=== PATIENT | female | born 1995 | race African-American/Black ===

== ENCOUNTER 2016-10-17 23:00 | Emergency (ER) | payer OTHER ==
[2016-10-18 01:20] LABS: CONTROL LINE HCG INT CTR LINE PRESENT
--- NOTE | 2016-10-18 02:22 | EDDOCDS ---
Physician Documentation [facility] Name: So Malone Age: 20 yrs Sex: Female : 1995 Arrival Date: 10/17/2016 Time: 23:00 Bed 7 Private MD: Momo ARDON Disposition: 10/18 01:57 Critical Care: Critical care not applicable. pc Disposition: 10/18/16 01:57 Discharged to Home/Self Care. Impression: Irregular menstruation, unspecified. - Condition is Stable. - Discharge Instructions: Abnormal Uterine Bleeding. - Medication Reconciliation, Local Pharmacy Hours form. - Follow up: Momo Vila [facility]; When: As needed; Reason: Continuance of care. - Problem is new. - Symptoms are unchanged. HPI: 00:38 This 20 yrs old Female presents to ER via Walkin/Carried/Asstd with pc complaints of Vag Bleeding,. 00:38 The history is obtained from the patient. She late for her menses by a week and started pc to have vaginal bleeding tonight. She believes she may be but has not done a home test. She is here "to check if I'm ". The patient has not experienced similar symptoms in the past. The patient has not recently seen a physician. Historical: - Allergies: no known allergies; - Home Meds: 1. Vitamin Oral tab 1 tab once daily - PMHx: none; - PSHx: ; - The history from nurses notes was reviewed: and I agree with what is documented. - Social history: Smoking status: Patient states was never smoker of tobacco. No barriers to communication noted, The patient speaks fluent Polish. - : The pt / caregiver states he / she is not on anticoagulants. Home medication list is obtained from the patient. - Hospitalizations: : No recent hospitalization is reported. - Exposure Risk Screening:: None identified. - Immunization history:: All immunizations up-to-date. - Family history: Not pertinent. - Social history:: the patient is a non-smoker, the patient does not drink alcohol. 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 pc Exam: 00:38 General Appearance: no acute distress, alert. pc 00:38 EENT: normal eye inspection, ears, nose and throat normal, pharynx normal, mucous membranes moist 00:38 Neck: The exam reveals no acute abnormalities. ROM is normal and painless. No nuchal rigidity is noted.. 00:38 Respiratory: no respiratory distress, normal breath sounds. 00:38 CVS: regular pulse rate, regular rhythm, normal S1 and S2, no murmurs, strong peripheral pulses. 00:38 Abdomen: soft, non-tender, no organomegaly, normal bowel sounds. 00:38 Skin: skin color is normal, warm, dry. 00:38 Extremities: no pedal edema. Vital Signs: 10/17 23:02 BP 142 / 71; Pulse 106; Resp 18 S; Temp 99.3(O); Pulse Ox 100% on R/A; Weight 68.04 kg gr2 / 150 lbs (R); Height 5 ft. 1 in. (154.94 cm) (R); Pain 3/10; 10/18 02:00 BP 117 / 73; Pulse 56; Resp 18; Temp 97.8(T); Pulse Ox 100% on R/A; Pain 0/10; chris 10/17 23:02 Body Mass Index 28.34 (68.04 kg, 154.94 cm) gr2 MDM: 10/17 23:52 UCG by Nursing ordered. pc 10/18 00:38 HCG,Serum Qualitative Ordered. EDMS 00:41 Differential Diagnosis: vaginal bleeding - menses v related. Plan: labs. pc 01:50 HCG,Serum Qualitative Reviewed. pc 01:57 Data reviewed: old medical records, vital signs, nurses notes, lab test results. Test pc interpretation: LAB - all labs as ordered have been reviewed, interpreted and considered in the overall management of the clinical presentation;. The patient has been re-examined and re-evaluated. The clinical presentation did not require any ED treatment or interventions. Disposition: The historical points, examination findings, and any diagnostic results supporting the provided diagnosis, were discussed with the patient or legal guardian. The need for outpatient follow up with the provider listed on their discharge instructions was discussed. They were encouraged to return to [facility], or the nearest ED, if symptoms worsen/persist, or for any other questions/concerns. Point of Care Testing: Urine : 00:36 hCG Reading: Negative; mgs 00:36 Exp: 07/2018; Lot #: [id number]; mgs Ranges: Signatures: Dispatcher [employer] Mehdi Park MD MD pc Smith, Mallory, RN RN ms18 Andrew Suarez RN RN mgs MTDD
--- NOTE | 2016-10-18 02:22 | EDDOCDS ---
Nurse's Notes [facility] Name: So Malone Age: 20 yrs Sex: Female : 1995 Arrival Date: 10/17/2016 Time: 23:00 Bed 7 Private MD: WVMomo AN Diagnosis: Irregular menstruation, unspecified Presentation: 10/17 23:03 Presenting complaint: Patient states: that she believes that she is approx 4 weeks ms18 and is having a miscarriage. Risk factors: The patient reports no loss of conciousness prior to arrival. This patient has not had a hysterectomy. This patient has not begun menopause. Adult Sepsis Screening: The patient does not have new or worsening altered mentation. Patient's respiratory rate is less than 22. Systolic blood pressure is greater than 100. Patient has a qSOFA score of 0- Negative Sepsis Screen. Suicide/Homicide risk assessment- the patient denies having any suicidal and/or homicidal ideations and does not present with any other emotional, behavioral or mental health complaints. 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 Transition of care: patient was not received from another setting of care. 23:03 Acuity: AMPARO Level 3 ms18 23:03 Method Of Arrival: Walkin/Carried/Asstd ms18 Triage Assessment: 23:05 General: Appears in no apparent distress, Behavior is appropriate for age, cooperative. ms18 Pain: Denies pain. HIV screening NA for this visit Offered previously. Neurological: Level of Consciousness is awake, alert, obeys commands, Oriented to person, place, time. Respiratory: No deficits noted. : Reports vaginal bleeding that is bright red with clots heavy flow. Derm: Skin is pink, warm & dry. 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 Vitamin Oral tab 1 tab once daily - PMHx: none; - PSHx: ; - The history from nurses notes was reviewed: and I agree with what is documented. - Social history: Smoking status: Patient states was never smoker of tobacco. No barriers to communication noted, The patient speaks fluent Uzbek. - : The pt / caregiver states he / she is not on anticoagulants. Home medication list is obtained from the patient. - Hospitalizations: : No recent hospitalization is reported. - Exposure Risk Screening:: None identified. - Immunization history:: All immunizations up-to-date. - Family history: Not pertinent. - Social history:: the patient is a non-smoker, the patient does not drink alcohol. Screenin/03 00:50 Screening information is obtained from the patient. Fall risk: No risks identified. mgs Assistance ADL's: requires no assistance with activities of daily living. Abuse/DV Screen: The patient / caregiver reports he/she is: not in a situation that causes fear, pain or injury. Nutritional screening: No deficits noted. Advance Directives: Currently, there is no health care proxy. There is no active DNR order. There is a living will, but a copy is not available at this time. home support is adequate. Assessment: 00:08 General: Appears in no apparent distress, Behavior is appropriate for age, cooperative. mgs Pain: Denies pain. Neurological: Level of Consciousness is awake, alert, Oriented to person, place, time. Cardiovascular: Capillary refill < 3 seconds Heart tones S1 S2 present Pulses are 2+ in right radial artery and left radial artery. Respiratory: Airway is patent Respiratory effort is even, unlabored, Respiratory pattern is regular, symmetrical, Breath sounds are clear bilaterally. Derm: Skin is intact, is healthy with good turgor. 00:50 Adult Sepsis Screening: The patient does not have new or worsening altered mentation. mgs Patient's respiratory rate is less than 22. Systolic blood pressure is greater than 100. Patient has a qSOFA score of 0- Negative Sepsis Screen. General: Appears in no apparent distress, Behavior is appropriate for age, cooperative. Pain: Denies pain. Neurological: Level of Consciousness is awake, alert, Oriented to person, place, time. Cardiovascular: Capillary refill < 3 seconds. Respiratory: Airway is patent Respiratory effort is even, unlabored, Respiratory pattern is regular, symmetrical. Derm: Skin is intact, is healthy with good turgor. 01:50 General: Appears in no apparent distress, Behavior is appropriate for age, cooperative. mgs Pain: Denies pain. Neurological: Level of Consciousness is awake, alert, Oriented to person, place, time. Cardiovascular: Capillary refill < 3 seconds. Respiratory: Airway is patent Respiratory effort is even, unlabored, Respiratory pattern is regular, symmetrical. Derm: Skin is intact, is healthy with good turgor. 02:19 Adult Sepsis Screening: The patient does not have new or worsening altered mentation. mgs Patient's respiratory rate is less than 22. Systolic blood pressure is greater than 100. Patient has a qSOFA score of 0- Negative Sepsis Screen. General: Appears in no apparent distress, Behavior is appropriate for age, cooperative. Pain: Denies pain. Neurological: Level of Consciousness is awake, alert, Oriented to person, place, time. Cardiovascular: Capillary refill < 3 seconds. Respiratory: Airway is patent Respiratory effort is even, unlabored, Respiratory pattern is regular, symmetrical. Derm: Skin is intact, is healthy with good turgor. Vital Signs: 10/17 23:02 BP 142 / 71; Pulse 106; Resp 18 S; Temp 99.3(O); Pulse Ox 100% on R/A; Weight 68.04 kg gr2 (R); Height 5 ft. 1 in. (154.94 cm) (R); Pain 3/10; 10/18 02:00 BP 117 / 73; Pulse 56; Resp 18; Temp 97.8(T); Pulse Ox 100% on R/A; Pain 0/10; chris 10/17 23:02 Body Mass Index 28.34 (68.04 kg, 154.94 cm) gr2 Vitals: 10/17 23:02 Log In Time: October 17, 2016 at 23:02. gr2 ED Course: 23:01 Patient visited by Mery Escobar. gr2 23:01 Patient moved to Waiting gr2 [facility]:02 [facility] gr2 23:03 Patient visited by Mery Escobar. gr2 23:03 Patient moved to Pre RCE gr2 23:05 Triage Initiated ms18 23:47 Patient moved to 7 cz 23:52 Mehdi Hicks MD is Attending Physician. pc 23:54 Patient visited by Mehdi Hicks MD. pc 23:56 Andrew Suarez,RN is Primary Nurse. mgs 10/18 00:09 Patient visited by Andrew Suarez,ROBIN. mgs 00:51 Patient visited by Andrew Suarez RN. mgs 01:52 Patient visited by Mehdi Hicks MD. pc 01:57 [facility] is Referral Physician. pc 02:00 Patient visited by Denice Harris PCA. chris 02:20 No IV's were initiated during this patient's visit. No procedures done that require mgs assistance. 02:21 The patient / caregiver is instructed regarding the plan of care and ED course. mgs Point of Care Testing: Urine : 00:36 hCG Reading: Negative; mgs 00:36 Exp: 07/2018; Lot #: [id number]; mgs Ranges: Order Results: Lab Order: HCG,Serum Qualitative; SPEC'M 10/18/16 00:55 Test: HCG, SERUM QUALITATIVE; Value: NEGATIVE; Range: NEGATIVE; Status: F Outcome: 01:57 Discharge ordered by Provider. pc 02:20 Discharge Assessment: Patient awake, alert and oriented x 3. No cognitive and/or mgs functional deficits noted. Patient verbalized understanding of disposition instructions. patient administered narcotics - no. The following High Risk Discharge criteria are identified: None. Discharged to home ambulatory, with friend. Condition: stable. Discharge instructions given to patient, Instructed on discharge instructions, follow up and referral plans. Demonstrated understanding of instructions, Pt was receptive of discharge instructions/ teaching. No special radiology studies were completed. Property sent home with patient. 02:21 Patient left the ED. mgs Signatures: Mehdi Hicks MD MD pc Zecher, Calvin, ROBIN KELLY Denice Harris PCA CARDIOLOGY COORDINATOR Mery Smith gr2 Melba Lee RN RN ms18 Andrew Suarez RN RN mgs MTDD
--- NOTE | 2016-10-20 03:22 | EDDOCDS ---
Nurse's Notes [facility] Name: So Malone Age: 20 yrs Sex: Female : 1995 Arrival Date: 10/17/2016 Time: 23:00 Bed 7 Private MD: GAMomo AN Diagnosis: Irregular menstruation, unspecified Presentation: 10/17 23:03 Presenting complaint: Patient states: that she believes that she is approx 4 weeks ms18 and is having a miscarriage. Risk factors: The patient reports no loss of conciousness prior to arrival. This patient has not had a hysterectomy. This patient has not begun menopause. Adult Sepsis Screening: The patient does not have new or worsening altered mentation. Patient's respiratory rate is less than 22. Systolic blood pressure is greater than 100. Patient has a qSOFA score of 0- Negative Sepsis Screen. Suicide/Homicide risk assessment- the patient denies having any suicidal and/or homicidal ideations and does not present with any other emotional, behavioral or mental health complaints. 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 Transition of care: patient was not received from another setting of care. 23:03 Acuity: AMPARO Level 3 ms18 23:03 Method Of Arrival: Walkin/Carried/Asstd ms18 Triage Assessment: 23:05 General: Appears in no apparent distress, Behavior is appropriate for age, cooperative. ms18 Pain: Denies pain. HIV screening NA for this visit Offered previously. Neurological: Level of Consciousness is awake, alert, obeys commands, Oriented to person, place, time. Respiratory: No deficits noted. : Reports vaginal bleeding that is bright red with clots heavy flow. Derm: Skin is pink, warm & dry. 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 Vitamin Oral tab 1 tab once daily - PMHx: none; - PSHx: ; - The history from nurses notes was reviewed: and I agree with what is documented. - Social history: Smoking status: Patient states was never smoker of tobacco. No barriers to communication noted, The patient speaks fluent Romanian. - : The pt / caregiver states he / she is not on anticoagulants. Home medication list is obtained from the patient. - Hospitalizations: : No recent hospitalization is reported. - Exposure Risk Screening:: None identified. - Immunization history:: All immunizations up-to-date. - Family history: Not pertinent. - Social history:: the patient is a non-smoker, the patient does not drink alcohol. Screenin/03 00:50 Screening information is obtained from the patient. Fall risk: No risks identified. mgs Assistance ADL's: requires no assistance with activities of daily living. Abuse/DV Screen: The patient / caregiver reports he/she is: not in a situation that causes fear, pain or injury. Nutritional screening: No deficits noted. Advance Directives: Currently, there is no health care proxy. There is no active DNR order. There is a living will, but a copy is not available at this time. home support is adequate. Assessment: 00:08 General: Appears in no apparent distress, Behavior is appropriate for age, cooperative. mgs Pain: Denies pain. Neurological: Level of Consciousness is awake, alert, Oriented to person, place, time. Cardiovascular: Capillary refill < 3 seconds Heart tones S1 S2 present Pulses are 2+ in right radial artery and left radial artery. Respiratory: Airway is patent Respiratory effort is even, unlabored, Respiratory pattern is regular, symmetrical, Breath sounds are clear bilaterally. Derm: Skin is intact, is healthy with good turgor. 00:50 Adult Sepsis Screening: The patient does not have new or worsening altered mentation. mgs Patient's respiratory rate is less than 22. Systolic blood pressure is greater than 100. Patient has a qSOFA score of 0- Negative Sepsis Screen. General: Appears in no apparent distress, Behavior is appropriate for age, cooperative. Pain: Denies pain. Neurological: Level of Consciousness is awake, alert, Oriented to person, place, time. Cardiovascular: Capillary refill < 3 seconds. Respiratory: Airway is patent Respiratory effort is even, unlabored, Respiratory pattern is regular, symmetrical. Derm: Skin is intact, is healthy with good turgor. 01:50 General: Appears in no apparent distress, Behavior is appropriate for age, cooperative. mgs Pain: Denies pain. Neurological: Level of Consciousness is awake, alert, Oriented to person, place, time. Cardiovascular: Capillary refill < 3 seconds. Respiratory: Airway is patent Respiratory effort is even, unlabored, Respiratory pattern is regular, symmetrical. Derm: Skin is intact, is healthy with good turgor. 02:19 Adult Sepsis Screening: The patient does not have new or worsening altered mentation. mgs Patient's respiratory rate is less than 22. Systolic blood pressure is greater than 100. Patient has a qSOFA score of 0- Negative Sepsis Screen. General: Appears in no apparent distress, Behavior is appropriate for age, cooperative. Pain: Denies pain. Neurological: Level of Consciousness is awake, alert, Oriented to person, place, time. Cardiovascular: Capillary refill < 3 seconds. Respiratory: Airway is patent Respiratory effort is even, unlabored, Respiratory pattern is regular, symmetrical. Derm: Skin is intact, is healthy with good turgor. Vital Signs: 10/17 23:02 BP 142 / 71; Pulse 106; Resp 18 S; Temp 99.3(O); Pulse Ox 100% on R/A; Weight 68.04 kg gr2 (R); Height 5 ft. 1 in. (154.94 cm) (R); Pain 3/10; 10/18 02:00 BP 117 / 73; Pulse 56; Resp 18; Temp 97.8(T); Pulse Ox 100% on R/A; Pain 0/10; chris 10/17 23:02 Body Mass Index 28.34 (68.04 kg, 154.94 cm) gr2 Vitals: 10/17 23:02 Log In Time: October 17, 2016 at 23:02. gr2 ED Course: 23:01 Patient visited by Mery Escobar. gr2 23:01 Patient moved to Waiting gr2 23:02 [facility] gr2 23:03 Patient visited by Mery Escobar. gr2 23:03 Patient moved to Pre RCE gr2 23:05 Triage Initiated ms18 23:47 Patient moved to 7 cz 23:52 Mehdi Hicks MD is Attending Physician. pc 23:54 Patient visited by Mehdi Hicks MD. pc 23:56 Andrew Suarez,RN is Primary Nurse. mgs 10/18 00:09 Patient visited by Andrew Suarez,ROBIN. mgs 00:51 Patient visited by Andrew Suarez RN. mgs 01:52 Patient visited by Mehdi Hicks MD. pc 01:57 [facility] is Referral Physician. pc 02:00 Patient visited by Denice Harris PCA. chris 02:20 No IV's were initiated during this patient's visit. No procedures done that require mgs assistance. 02:21 The patient / caregiver is instructed regarding the plan of care and ED course. mgs 02:55 [facility] Payment Agreement was scanned into [employer] and attached to record. hs2 Point of Care Testing: Urine : 00:36 hCG Reading: Negative; mgs 00:36 Exp: 07/2018; Lot #: [id number]; mgs Ranges: Order Results: Lab Order: HCG,Serum Qualitative; SPEC'M 10/18/16 00:55 Test: HCG, SERUM QUALITATIVE; Value: NEGATIVE; Range: NEGATIVE; Status: F Outcome: 01:57 Discharge ordered by Provider. pc 02:20 Discharge Assessment: Patient awake, alert and oriented x 3. No cognitive and/or mgs functional deficits noted. Patient verbalized understanding of disposition instructions. patient administered narcotics - no. The following High Risk Discharge criteria are identified: None. Discharged to home ambulatory, with friend. Condition: stable. Discharge instructions given to patient, Instructed on discharge instructions, follow up and referral plans. Demonstrated understanding of instructions, Pt was receptive of discharge instructions/ teaching. No special radiology studies were completed. Property sent home with patient. 02:21 Patient left the ED. mgs Signatures: Mehdi Hicks MD MD pc Zecher, Calvin, ROBIN KELLY cz Denice Harris PCA PLANNING CONSULTANT chris Mery Escobar gr2 Melba Lee RN RN ms18 Andrew Suarez RN RN mgs Radha Voss, Reg Reg hs2 Chart Complete MTDD
--- NOTE | 2016-10-20 03:22 | EDDOCDS ---
Physician Documentation [facility] Name: So Malone Age: 20 yrs Sex: Female : 1995 Arrival Date: 10/17/2016 Time: 23:00 Bed 7 Private MD: Momo ARDON Disposition: 10/18 01:57 Critical Care: Critical care not applicable. pc Disposition: 10/18/16 01:57 Discharged to Home/Self Care. Impression: Irregular menstruation, unspecified. - Condition is Stable. - Discharge Instructions: Abnormal Uterine Bleeding. - Medication Reconciliation, Local Pharmacy Hours form. - Follow up: Momo Vila [facility]; When: As needed; Reason: Continuance of care. - Problem is new. - Symptoms are unchanged. HPI: 00:38 This 20 yrs old Female presents to ER via Walkin/Carried/Asstd with pc complaints of Vag Bleeding,. 00:38 The history is obtained from the patient. She late for her menses by a week and started pc to have vaginal bleeding tonight. She believes she may be but has not done a home test. She is here "to check if I'm ". The patient has not experienced similar symptoms in the past. The patient has not recently seen a physician. Historical: - Allergies: no known allergies; - Home Meds: 1. Vitamin Oral tab 1 tab once daily - PMHx: none; - PSHx: ; - The history from nurses notes was reviewed: and I agree with what is documented. - Social history: Smoking status: Patient states was never smoker of tobacco. No barriers to communication noted, The patient speaks fluent Hong Konger. - : The pt / caregiver states he / she is not on anticoagulants. Home medication list is obtained from the patient. - Hospitalizations: : No recent hospitalization is reported. - Exposure Risk Screening:: None identified. - Immunization history:: All immunizations up-to-date. - Family history: Not pertinent. - Social history:: the patient is a non-smoker, the patient does not drink alcohol. 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 pc Exam: 00:38 General Appearance: no acute distress, alert. pc 00:38 EENT: normal eye inspection, ears, nose and throat normal, pharynx normal, mucous membranes moist 00:38 Neck: The exam reveals no acute abnormalities. ROM is normal and painless. No nuchal rigidity is noted.. 00:38 Respiratory: no respiratory distress, normal breath sounds. 00:38 CVS: regular pulse rate, regular rhythm, normal S1 and S2, no murmurs, strong peripheral pulses. 00:38 Abdomen: soft, non-tender, no organomegaly, normal bowel sounds. 00:38 Skin: skin color is normal, warm, dry. 00:38 Extremities: no pedal edema. Vital Signs: 10/17 23:02 BP 142 / 71; Pulse 106; Resp 18 S; Temp 99.3(O); Pulse Ox 100% on R/A; Weight 68.04 kg gr2 / 150 lbs (R); Height 5 ft. 1 in. (154.94 cm) (R); Pain 3/10; 10/18 02:00 BP 117 / 73; Pulse 56; Resp 18; Temp 97.8(T); Pulse Ox 100% on R/A; Pain 0/10; chris 10/17 23:02 Body Mass Index 28.34 (68.04 kg, 154.94 cm) gr2 MDM: 10/17 23:52 UCG by Nursing ordered. pc 10/18 00:38 HCG,Serum Qualitative Ordered. EDMS 00:41 Differential Diagnosis: vaginal bleeding - menses v related. Plan: labs. pc 01:50 HCG,Serum Qualitative Reviewed. pc 01:57 Data reviewed: old medical records, vital signs, nurses notes, lab test results. Test pc interpretation: LAB - all labs as ordered have been reviewed, interpreted and considered in the overall management of the clinical presentation;. The patient has been re-examined and re-evaluated. The clinical presentation did not require any ED treatment or interventions. Disposition: The historical points, examination findings, and any diagnostic results supporting the provided diagnosis, were discussed with the patient or legal guardian. The need for outpatient follow up with the provider listed on their discharge instructions was discussed. They were encouraged to return to [facility], or the nearest ED, if symptoms worsen/persist, or for any other questions/concerns. 02:22 Financial registration complete. hs2 02:55 [facility] Payment Agreement was scanned into [employer] and attached to record. hs2 Point of Care Testing: Urine : 00:36 hCG Reading: Negative; mgs 00:36 Exp: 07/2018; Lot #: [id number]; mgs Ranges: Signatures: Dispatcher [employer] EDMehdi Garner MD MD pc Smith, Mallory, RN RN [id number] Andrew Suarez RN RN mgs Radha Voss, Reg Reg hs2 The chart was reviewed and I authenticate all verbal orders and agree with the evaluation and treatment provided.Attachments: 02:55 [facility] Payment Agreement hs2 Chart Complete MTDD
--- NOTE | 2016-10-20 03:22 | EDDOCDS ---
Physician Documentation [facility] Name: So Malone Age: 20 yrs Sex: Female : 1995 Arrival Date: 10/17/2016 Time: 23:00 Bed 7 Private MD: Momo ARDON Disposition: 10/18 01:57 Critical Care: Critical care not applicable. pc Disposition: 10/18/16 01:57 Discharged to Home/Self Care. Impression: Irregular menstruation, unspecified. - Condition is Stable. - Discharge Instructions: Abnormal Uterine Bleeding. - Medication Reconciliation, Local Pharmacy Hours form. - Follow up: Momo Vila [facility]; When: As needed; Reason: Continuance of care. - Problem is new. - Symptoms are unchanged. HPI: 00:38 This 20 yrs old Female presents to ER via Walkin/Carried/Asstd with pc complaints of Vag Bleeding,. 00:38 The history is obtained from the patient. She late for her menses by a week and started pc to have vaginal bleeding tonight. She believes she may be but has not done a home test. She is here "to check if I'm ". The patient has not experienced similar symptoms in the past. The patient has not recently seen a physician. Historical: - Allergies: no known allergies; - Home Meds: 1. Vitamin Oral tab 1 tab once daily - PMHx: none; - PSHx: ; - The history from nurses notes was reviewed: and I agree with what is documented. - Social history: Smoking status: Patient states was never smoker of tobacco. No barriers to communication noted, The patient speaks fluent Cymro. - : The pt / caregiver states he / she is not on anticoagulants. Home medication list is obtained from the patient. - Hospitalizations: : No recent hospitalization is reported. - Exposure Risk Screening:: None identified. - Immunization history:: All immunizations up-to-date. - Family history: Not pertinent. - Social history:: the patient is a non-smoker, the patient does not drink alcohol. REHANGER: 10/17 23:05 3, Full Term 1, Premature 0, 1, Living 1, LMP 09/19/2016 ms18 ROS: 10/18 00:38 All systems are negative except as listed. pc Exam: 00:38 General Appearance: no acute distress, alert. pc 00:38 EENT: normal eye inspection, ears, nose and throat normal, pharynx normal, mucous membranes moist 00:38 Neck: The exam reveals no acute abnormalities. ROM is normal and painless. No nuchal rigidity is noted.. 00:38 Respiratory: no respiratory distress, normal breath sounds. 00:38 CVS: regular pulse rate, regular rhythm, normal S1 and S2, no murmurs, strong peripheral pulses. 00:38 Abdomen: soft, non-tender, no organomegaly, normal bowel sounds. 00:38 Skin: skin color is normal, warm, dry. 00:38 Extremities: no pedal edema. Vital Signs: 10/17 23:02 BP 142 / 71; Pulse 106; Resp 18 S; Temp 99.3(O); Pulse Ox 100% on R/A; Weight 68.04 kg gr2 / 150 lbs (R); Height 5 ft. 1 in. (154.94 cm) (R); Pain 3/10; 10/18 02:00 BP 117 / 73; Pulse 56; Resp 18; Temp 97.8(T); Pulse Ox 100% on R/A; Pain 0/10; chris 10/17 23:02 Body Mass Index 28.34 (68.04 kg, 154.94 cm) gr2 MDM: 10/17 23:52 UCG by Nursing ordered. pc 10/18 00:38 HCG,Serum Qualitative Ordered. EDMS 00:41 Differential Diagnosis: vaginal bleeding - menses v related. Plan: labs. pc 01:50 HCG,Serum Qualitative Reviewed. pc 01:57 Data reviewed: old medical records, vital signs, nurses notes, lab test results. Test pc interpretation: LAB - all labs as ordered have been reviewed, interpreted and considered in the overall management of the clinical presentation;. The patient has been re-examined and re-evaluated. The clinical presentation did not require any ED treatment or interventions. Disposition: The historical points, examination findings, and any diagnostic results supporting the provided diagnosis, were discussed with the patient or legal guardian. The need for outpatient follow up with the provider listed on their discharge instructions was discussed. They were encouraged to return to [facility], or the nearest ED, if symptoms worsen/persist, or for any other questions/concerns. 02:22 Financial registration complete. hs2 02:55 [facility] Payment Agreement was scanned into [employer] and attached to record. hs2 Point of Care Testing: Urine : 00:36 hCG Reading: Negative; mgs 00:36 Exp: 07/2018; Lot #: [id number]; mgs Ranges: Signatures: Dispatcher [employer] EDMehdi Garner MD MD pc Smith, Mallory, RN RN [id number] Andrew Suarez RN RN mgs Radha Voss, Reg Reg hs2 The chart was reviewed and I authenticate all verbal orders and agree with the evaluation and treatment provided.Attachments: 02:55 [facility] Payment Agreement hs2 Chart Complete MTDD
== END 2016-10-18 02:21 | disposition home or self-care (01) ==
LOC: M ED 23:00
DX: N92.6 Irregular menstruation, unspecified (principal); Z79.899 Other long term (current) drug therapy

== ENCOUNTER 2017-08-02 15:15 | Inpatient (IN) | payer OTHER ==
[~2017-08-02] VITALS: Ht 154.9 cm; Wt 65.0 kg
[2017-08-02] MEDS ORDERED: ZOLO25TA PO (15:42)
[2017-08-02 17:15] LABS: MEAN CORPUSCULAR HEMOGLOBIN 30.9 pg (27.0-33.0); MEAN CORPUSCULAR HGB CONC 32.7 g/dl (32.0-36.5); MEAN CORPUSCULAR VOLUME 94.5 fl (80.0-96.0); RED CELL DISTRIBUTION WIDTH 13.1 % (11.5-14.5); WHITE BLOOD COUNT 5.9 10^3/uL (4.0-10.0)
[2017-08-02 17:23] LABS: CONTROL LINE HCG INT CTR LINE PRESENT
[2017-08-02 17:35] LABS: METHADONE URINE NEGATIVE (NEGATIVE)
[2017-08-02 17:49] LABS: ALBUMIN 4.1 GM/DL (3.2-5.2); ALBUMIN/GLOBULIN RATIO 1.14 (1.00-1.93); ALKALINE PHOSPHATASE 44 U/L (45-117); ALT/SGPT 13 U/L (12-78); ANION GAP 6 MEQ/L (8-16); AST/SGOT 9 U/L (15-37); BILIRUBIN,DIRECT < 0.1 MG/DL (0.0-0.2); BILIRUBIN,TOTAL 0.2 MG/DL (0.2-1.0); BLOOD UREA NITROGEN 14 MG/DL (7-18); CALCIUM LEVEL 8.8 MG/DL (8.5-10.1); CARBON DIOXIDE LEVEL 26 MEQ/L (21-32); CHLORIDE LEVEL 108 MEQ/L (98-107); CREATININE FOR GFR 1.02 MG/DL (0.55-1.02); GLOMERULAR FILTRATION RATE > 60.0 (>60); GLUCOSE, FASTING 80 MG/DL (70-105); POTASSIUM SERUM 3.8 MEQ/L (3.5-5.1); SODIUM LEVEL 140 MEQ/L (136-145); TOTAL PROTEIN 7.7 GM/DL (6.4-8.2)
[2017-08-02] MEDS ORDERED: RIGHTAB2 PO (18:46)
[2017-08-02] MEDS ORDERED: ACET1TAB17 PO (18:46)
[2017-08-02 21:00] VITALS: BP 144/75
[2017-08-02] MEDS ORDERED: MAALOX 30 ML SUSP *UDC PO PRN (22:00)
[2017-08-02] MEDS ORDERED: traZODone 50 MG TAB PO PRN (22:00)
[2017-08-02] MEDS ORDERED: MOM 30ML SUSPENSION UDC PO PRN (22:00)
[2017-08-02] MEDS ORDERED: OXAZEPAM 15 MG CAP PO PRN (22:00)
[2017-08-03 06:00] VITALS: BP 110/59
[2017-08-03] MEDS ORDERED: SERTRALINE HCL 25 MG TABLET PO SCH (09:00)
[2017-08-03] MEDS: PRENATAL VITAMINS CHEWABLE TABLET PO SCH (09:14)
--- NOTE | 2017-08-03 09:19 | HPEPDOC ---
[facility] Medical History & Physical Date of Admission Aug 02, 2017 History and Physical PCP: [facility] ATTENDING: Dr. Ac Spencer HPI: 21yoF admitted to [facility] for unspecified depressive disorder, being medically examined today. No acute medical complaints today. Patient states she has history of headaches. They occur approximately twice per month. They resolve quickly with Tylenol. She also has history of chronic back pain. She denies any prior injury. She denies any radiation of pain down her legs. She denies weakness, numbness, or tingling in lower extremities. She denies bowel or bladder incontinence. She states pain is controlled with Tylenol as needed. She states she has been on vitamins since the of her child in 2010. Denies any fevers, chills, weakness, fatigue, [place], CP, SOB, cough, palpitations, abdominal pain, N/V/D or changes in bowel or bladder habits. 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 Illicit Drugs: Denies IV Drug Use: Denies Tattoos done unprofessionally: Denies FAMHX: Mother: Alive, hypertension, depression Father: Unknown Siblings: 4 sisters Alive, asthma Children: Alive, well maternal grandfather History of alcohol use. ROS: As noted in HPI, otherwise 11pt ROS of systems reviewed and remarkable only for LMP "last month" per patient. PE: GEN: 21 yo F, appears stated age. Well-nourished, well developed. No acute distress. Alert and oriented x 3. Avoids eye contact, short answers. HEENT: Normocephalic, atraumatic. Pupils are equal, round, and reactive to light. Extraocular movements are intact. No nystagmus appreciated. Sclera are nonicteric. Conjunctiva without injection. Nose midline. Nasal turbinates without bogginess. EACs both patent BL. TMs both visualized and sears with good cone of light, no bulging or erythema. No facial asymmetry. Moist mucous membranes. Dentition fair. Pharynx pink and moist, no cobblestoning. Neck supple , trachea midline. No lymphadenopathy or thyromegaly appreciated. CHEST: Regular rate and rhythm, +S1, +S2 LUNGS: Clear to auscultation bilaterally. No wheezes, rales, or rhonchi. Breathing appears symmetric and easy. Patient is speaking in full sentences. No accessory muscle use. ABD: Round, soft, non-tender, non-distended. +Bowel sounds throughout. No rebound or guarding. No costovertebral angle tenderness. EXT: Pulses 2+ bilaterally dorsalis pedis and radial. No lower extremity edema appreciated. SKIN: [address], dry, warm. Capillary refill <2sec. No rashes. NEURO: Alert and oriented x 3. Cranial nerves III-XII are intact. No focal deficits appreciated. EKG: pending. A&P: 21yoF admitted to [facility] for unspecified depressive disorder 1. Psych. Plan per Psychiatry. Obtain baseline EKG to assure the safety of psychiatric medications as they can prolong the QT interval. 2. Chronic headaches. Controlled with Tylenol 650 mg every 6 hours as needed. 3. Chronic back pain. Controlled with Tylenol 650 mg every 6 hours as needed. 4. Follow up with PCP on discharge. 5. Substance use. Per psychiatry. 6. Staff member Caitlin KELLY present throughout exam. Vital Signs Vital Signs Date Time Temp Pulse Resp B/P (MAP) Pulse Ox O2 Delivery O2 Flow Rate FiO2 08/03/17 06:00 97.9 51 14 110/59 (76) 08/02/17 20:35 100 Room Air Laboratory Data Labs 24H Laboratory Tests 2 08/02/17 15:56: Nucleated Red Blood Cells % (auto) 0.0, Anion Gap 6L, Glomerular Filtration Rate > 60.0, Calcium Level 8.8, Aspartate Amino Transf (AST/SGOT) 9L, Alanine Aminotransferase (ALT/SGPT) 13, Alkaline Phosphatase 44L, Total Bilirubin 0.2, Direct Bilirubin < 0.1, Total Protein 7.7, Albumin 4.1, Albumin/Globulin Ratio 1.14, Thyroid Stimulating Hormone (TSH) 0.831, Human Chorionic Gonadotropin, Qual NEGATIVE, Salicylates Level < 1.7L, Urine Amphetamines Screen NEGATIVE, Urine Benzodiazepines Screen NEGATIVE, Urine Opiates Screen NEGATIVE, Urine Methadone Screen NEGATIVE, Acetaminophen Level < 2.0L, Urine Barbiturates Screen NEGATIVE, Urine Phencyclidine Screen NEGATIVE, Urine Cocaine Metabolite Screen NEGATIVE, Urine Cannabinoids Screen NEGATIVE, Ethyl Alcohol Level < 0.003 CBC/BMP Laboratory Tests 08/02/17 15:56 Red Blood Count 4.37, Mean Corpuscular Volume 94.5, Mean Corpuscular Hemoglobin 30.9, Mean Corpuscular Hemoglobin Concent 32.7, Red Cell Distribution Width 13.1 Home Medications Scheduled (Right Step 27-0.8 mg) 1 Tab Tab, 1 TAB PO DAILY Sertraline Hcl (Zoloft) 25 Mg Tab, 25 MG PO DAILY Scheduled PRN Acetaminophen (Acetaminophen) 325 Mg Tab, 650 MG PO Q6H PRN for PAIN Allergies Coded Allergies: No Known Allergies (Unverified , 08/02/17) Adri Marti Aug 03, 2017 09:19
--- NOTE | 2017-08-03 11:20 | MHHPE ---
DATE OF ADMISSION: 08/02/2017 LEGAL STATUS AT ADMISSION: 9.39 legal status. 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 According to the record, the patient was seen as a walk-in at [facility] and was sent to our emergency department for evaluation as she reported suicidal thoughts. Also admitted auditory and visual hallucinations and nightly alcohol use as self medication for depression, stress, and insomnia. The patient reported suicidal thoughts started about 2 months ago. The patient admits thinking about several different ways to kill herself. Before admission, she admitted that she was thinking about how to drive her car into a barrier. She reported that she has a 6-year-old son that has been living in [place] with her grandmother. She just and she has been on rotation to [place]. She returned home last month. She has orders to go to [place] for the next month. She reports that now without her family problems, it is very difficulty to keep moving from place to place. She says that she has done nothing to harm herself because, "does not have the balls". She stated that ask for a compassionate re-assignment but she does not believe it will be granted. She reports auditory and visual hallucinations. She sees someone sitting next to her intermittently. She also admits drinking alcohol nightly for the last month as a mean to self-medicate and be able to sleep. During the interview today, the patient reports feeling depressed, anhedonia, low energy, low appetite, low self-esteem, difficulty with attention and concentration. She also reports high anxiety, chest palpitation and "in an emotional roller coaster". She cannot stop thinking about her family problems and the fact that she has to go to [place] for the next rotation. Patient is aware that these visual hallucinations are not true and should not be there and may be due to the fact that she is drinking every night. PAST MEDICAL HISTORY: The patient reports being diagnosed with asthma. ALLERGIES: No known drug allergies. PAST PSYCHIATRIC HISTORY: This is her first psychiatric treatment. FAMILY HISTORY: Patient reports her mother suffers from depression. SUBSTANCE ABUSE HISTORY: The patient denies any problems with drugs or alcohol until a month ago when she started using alcohol every night in the context of self-medication in order to feel calmer, less anxious and to be able to sleep. SOCIAL HISTORY: The patient was raised by her mother. Her parents were . She stated that she was bullied at school. But no other major problems. No abuse or neglect during childhood. She graduated high school and she has been 4 years in the [employer]. She spent 7 months in [place] and is supposed to be leaving to [facility] for the next rotation. She is recently and has a 6-year-old son. That is loving with her mother in [place]. PSYCHIATRIC REVIEW OF SYSTEMS: Bipolar disorder/dejuan: No evidence or reports of distractibility, grandiosity, flight of ideas, pressured speech or increased activity. Anxiety disorder: The patient feels anxious and has limited symptoms compatible with panic. Denies agoraphobia. Denies obsessive compulsive disorder (OCD). Somatization disorders: Screening for pain, conversion, GI and sexual symptoms is negative. Easting disorder: Screening for dieting, use of laxative, eating in binges is negative. Cognitive disorder: Screening for short and long-term memory impairment, orientation and general information is negative for cognitive dysfunction. Psychotic disorder: No evidence of delusions. No paranoia. No grandiosity or oriental orthodox preoccupation. The patient reports auditory and visual hallucinations in the context of using alcohol nightly. No looseness of associations. PHYSICAL EXAMINATION: As per physician assistant site manager. LABS AT ADMISSION: CBC is unremarkable. CMP within normal limits. TSH unremarkable. HCG negative. Urine drug screen negative. Blood alcohol level is negative. MENTAL STATUS EXAMINATION: The patient is dressed in [facility]. The patient is cooperative. Speech is soft and monotone. Has fair eye contact. Mood is anxious and depressed. Affect is restricted, at times labile. The patient is oriented to time, place, person and situation. Maintains attention and concentration correctly. Instant recall, recent and remote memory are intact. Thought process are logical and goal directed. The patient does not have auditory or visual hallucinations. The patient does not have paranoid or persecutory somatic, grandiose or oriental orthodox delusions. The patient is reporting suicidal thoughts but denies homicidal ideation. Judgment and insight are limited. DIAGNOSIS: AXIS I: Unspecified depressive disorder, alcohol abuse. AXIS II: Deferred. AXIS III: None acute INITIAL TREATMENT PLAN: The patient was admitted on a 9.39 legal status, complete history was obtained. With her permission, family will be contacted and data base will be expanded. Her medication regime will be reviewed and changed accordingly. She will be provided with protected environment. She will be treated with individual, group and milieu therapies. She will also received supportive psychoeducation. Discharge planning will commence immediately. Length of stay will be between 5 and 7 days. Outpatient followup will be strongly recommended. Treatment plan will focus initially on depression, substance abuse and risk for suicide.
[2017-08-03 12:00] VITALS: BP 111/69
[2017-08-03 18:00] VITALS: BP 107/59
[2017-08-03] MEDS: ACETAMINOPHEN TAB 650MG DOSE (2X325MG) PO PRN (19:24)
[2017-08-03 21:00] VITALS: BP 112/64
--- NOTE | 2017-08-03 22:48 | ECGEPIP ---
Stationary ECG Study [facility] Test Date: 2017-08-03 Pat Name: JUANCHO TSE Department: Room: [place] [address] Gender: F Well Reactivator Operator: MELQUIADES : 1995 Requested By: Adri Marti Order Number: [id number] Reading MD: Ac Cortez Measurements Intervals Garibaldi Rate: 54 P: 37 CT: 158 QRS: 77 QRSD: 86 T: 27 QT: 387 QTc: 370 Interpretive Statements SINUS BRADYCARDIA WITH SINUS ARRHYTHMIA Poor R-wave progression, nonspecific T-wave abnormalities. No prior ECG available for comparison at the time of interpretation. Electronically Signed On 08-03-2017 22:48:10 EDT by Ac Cortez
[2017-08-04 06:56] VITALS: BP 132/82
[2017-08-04] MEDS: PRENATAL VITAMINS CHEWABLE TABLET PO SCH (10:55)
[2017-08-04] MEDS: SERTRALINE HCL 50 MG TAB PO SCH (10:55)
[2017-08-04 18:00] VITALS: BP 102/52
--- NOTE | 2017-08-04 21:48 | IPN ---
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 Is also reporting drinking every night for the last month to be able to cope with the stressors and the depression, and also insomnia. MEDICATIONS: - sertraline 50 mg by mouth in the morning - trazodone 50 mg by mouth at night as needed for insomnia SUBJECTIVE: "I feel about the same." OBJECTIVE: The patient continues to be depressed with very little interaction with other patients. Has tendency to stay in her room. Has psychomotor retardation and restricted facial expressions. The patient is able to contract for safety during the interview. The patient denies side effects from the medications. MENTAL STATUS EXAMINATION: The patient is dressed in [facility]. The patient is cooperative during the exam. Has poor eye contact. Speech is slow and monotone. Mood is depressed and anxious. Affect is restricted, somewhat labile. There is no evidence of psychotic symptoms. No auditory or visual hallucinations. Memory is fair. The patient is fully oriented. Associations are intact. Thinking is logical. Thought content is appropriate. The patient is able to contract for safety while in our unit. Insight and judgment are fair. ASSESSMENT: 1. Major depressive disorder. 2. Alcohol abuse. PLAN: 1. Continue with sertraline 50 mg by mouth in the morning 2. Continue with trazodone 50 mg by mouth at night as needed for insomnia. 3. Continue medication management, individual and group therapy.
[2017-08-04] MEDS: ACETAMINOPHEN TAB 650MG DOSE (2X325MG) PO PRN (22:00)
[2017-08-05 06:56] VITALS: BP 102/56
[2017-08-05] MEDS: SERTRALINE HCL 50 MG TAB PO SCH (09:14)
[2017-08-05] MEDS: PRENATAL VITAMINS CHEWABLE TABLET PO SCH (09:14)
[2017-08-05 11:56] VITALS: BP 93/54
[2017-08-05 12:13] VITALS: BP 98/58
--- NOTE | 2017-08-05 15:25 | MHIPN ---
DATE: 08/05/2017 CHIEF COMPLAINT: Feels better. SUBJECTIVE: Seen for followup in the presence of staff. Says feels better and that she is less anxious, less depressed. Denies any auditory or visual hallucinations. Says had them only very briefly, occasionally. Nothing consistent. The visual image was not attached to any noise or sounds. Says heard whispers separately but could not make out what they said. Denies any consistency with these perceptual disturbances. MENTAL STATUS EXAMINATION: She is neat. She is cooperative. There is no agitation. No psychomotor retardation. Affect is restricted. She appears somewhat tired. She displays a fair range of affect. She denies any thoughts of harming herself or anyone else. At present is not internally preoccupied. Cognition grossly intact. Judgment and insight fair. ASSESSMENT: 1. Major depressive disorder. 2. Alcohol use disorder is a possibility. The perceptual disturbances are not in keeping with primary psychosis. PLAN: Continue sertraline 50 mg daily, the rest of the regimen and rest of the care, and she is to be encouraged to participate in activities in the unit.
[2017-08-05 18:08] VITALS: BP 112/54
[2017-08-06 06:28] VITALS: BP 119/59
[2017-08-06] MEDS: SERTRALINE HCL 50 MG TAB PO SCH (09:32)
[2017-08-06] MEDS: PRENATAL VITAMINS CHEWABLE TABLET PO SCH (09:32)
--- NOTE | 2017-08-06 17:45 | MHIPN ---
DATE: 08/06/2017 CHIEF COMPLAINT: Says feels good. SUBJECTIVE: Seen for followup, in the presence of staff. Says feels good, though the night was not optimum, says felt she had broken sleep. Moods are good, as is appetite. MENTAL STATUS EXAMINATION: Neat, cooperative. No agitation. Coherent. Affect is restricted but reactive. Denies any thoughts of harming herself or anyone else. No evidence of any psychosis. Cognition grossly intact. Judgment is good. Insight improved. ASSESSMENT: 1. Major depressive disorder. 2. Alcohol use disorder is a possibility. PLAN: Continue sertraline 50 mg daily. Continue the rest of the care. She sees Dr. Schaeffer tomorrow. VITAL SIGNS: Blood pressure 119/59, pulse 68, temperature 98.7.
[2017-08-06 18:00] VITALS: BP 110/56
[2017-08-07 06:29] VITALS: BP 97/58
[2017-08-07] MEDS: SERTRALINE HCL 50 MG TAB PO SCH (08:25)
[2017-08-07] MEDS: PRENATAL VITAMINS CHEWABLE TABLET PO SCH (08:26)
[2017-08-07 12:38] VITALS: BP 96/55
--- NOTE | 2017-08-07 15:17 | IPN ---
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 The patient also stated that she was drinking every night in order to cope with stressors and high anxiety and inability to sleep. MEDICATIONS: - Zoloft 50 mg by mouth in the morning - trazodone 50 mg by mouth at night as needed for insomnia SUBJECTIVE: "I am feeling better." OBJECTIVE: The patient has improved from admission. Reports less depression. She is interacting better with other patients and staff. She has no longer psychomotor retardation. Her facial expression has also improved. The patient denies side effect from the medication and is sleeping well with the help of the treatment. MENTAL STATUS EXAMINATION: The patient is dressed in [facility]. The patient is cooperative, has good eye contact. Speech is somewhat slow but improved. Mood is depressed and anxious, but also improved. Affect is congruent with mood. There is no evidence of psychotic symptoms. No auditory or visual hallucinations. Memory is fair. The patient is fully oriented. Associations are intact. Thinking is logical. Thought content is appropriate. The patient is able to contract for safety. Insight and judgment fair. ASSESSMENT: 1. Major depressive disorder. 2. Alcohol abuse. PLAN: 1. Continue sertraline 50 mg by mouth in the morning. 2. Continue with trazodone 50 mg by mouth at night as needed for insomnia. 3. Continue medication management, individual and group therapy.
[2017-08-07 18:00] VITALS: BP 92/54
[2017-08-07 21:00] VITALS: BP 110/62
[2017-08-08 06:43] VITALS: BP 108/57
[2017-08-08] MEDS: PRENATAL VITAMINS CHEWABLE TABLET PO SCH (09:04)
[2017-08-08] MEDS: SERTRALINE HCL 50 MG TAB PO SCH (09:04)
[2017-08-08] MEDS ORDERED: SERT50TA PO (09:05)
--- NOTE | 2017-08-08 16:57 | MHDS ---
DATE OF ADMISSION: 08/02/2017 DATE OF DISCHARGE: 08/08/2017 LEGAL STATUS AT ADMISSION: 939 legal status. 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 According to the record the patient was seen at [facility] as a walk-in and sent to our emergency department (ED) for evaluation. Patient was reporting suicidal thoughts. Patient also admitted to have auditory and visual hallucinations. Also the use of alcohol nightly for self-medication of depression, stress, and insomnia. Patient stated that her suicidal thoughts started around two months ago. Patient admitted thinking about several different ways to kill herself. She stated that she was thinking about how to drive her car into a ravine. Said that she has a 6-year-old son that has been living in [place] with her grandmother. She just and also has been on rotation to [place]. She returned home last month. She has orders to go to [place] next month. She reports that now has family problems and is very difficult to keep the stability as she is moving from place to place. Patient also reported that she has done nothing to harm herself because "I do not have the balls". She stated that she asked for a compassionate reassignment but she does not believe it will be granted. She reported auditory and visual hallucinations. Stated that she sees someone sitting next to her intermittently. She also admits drinking alcohol nightly for the last month as a mean of self-medication to treat anxiety and insomnia. During the interview in our unit patient reports depression anhedonia, low energy, low appetite, low self esteem, difficulty with attention and concentration. Also reports high anxiety, chest palpitations and being in a "emotional roller coaster". States that can not stop thinking about her family problems and the fact that she has to go to [place] for the next rotation. Patient is aware that these visual hallucinations are not true and should not be there. They might be associated with the fact that she is drinking at night. LABS ON ADMISSION: Her CBC was within normal limits, CMP was unremarkable. TSH within normal limits. test was negative. Blood alcohol level was negative. HOSPITAL COURSE: Patient was admitted and her sertraline was increased to 50 mg by mouth every morning and was also placed on trazodone as needed for insomnia. With the above medication the patient was stabilized. Patient had no complication during this hospital admission. The patients mood improved slowly but steadily, by the end of the hospitalization the patient reports a significant improvement. She is denying any psychotic symptoms. No auditory or visual hallucinations and is also denying suicidal thoughts. Patient is motivated to continue her treatment as outpatient. MENTAL STATUS EXAMINATION AT DISCHARGE: Patient is dressed in [facility]. Patient is calm and cooperative. Speech is clear, coherent, good normal rate and is spontaneous. Patient has good eye contact. Mood is euthymic. Affect is appropriate and congruent with mood. Patient is oriented to time, place, person, and situation. Maintains attention and concentration correctly. Memory is intact. Thought processes are coherent, logical, and goal directed. Patient does not have auditory or visual hallucination. The patient does not have paranoid, persecutory, somatic, grandiose or scientology delusions. The patient is denying suicidal or homicidal ideation. Judgment and insight are fair. DISCHARGE DIAGNOSES: AXIS I: Adjustment disorder with depressed and anxious mood. AXIS II: Deferred. AXIS III: Asthma. CONDITION AT DISCHARGE: Stable. No suicidal or homicidal ideation. No auditory or visual hallucinations. No delusions. INSTRUCTIONS TO THE PATIENT: The patient is to continue taking her medications as prescribed and followup appointments. Patient is advised to maintain absolute sobriety from drugs and alcohol. The patient has a scheduled appointment for medication management, individual psychotherapy, and primary care provider.
== END 2017-08-08 13:00 | disposition home or self-care (01) | DRG 882 ==
LOC: M ED 15:15 → M ED INP 18:32 → M PSY 21:00
PROVIDERS: ADMIT Psychiatry & Neurology Psychiatry; ATTEND Psychiatry & Neurology Psychiatry
DX: F43.23 Adjustment disorder with mixed anxiety and depressed mood (principal); J45.909 Unspecified asthma, uncomplicated

== ENCOUNTER 2018-01-18 06:03 | Emergency (ER) | payer OTHER ==
[2018-01-18] MEDS: KETOROLAC 60 MG/2 ML VIAL (J1885) IM (07:17)
== END 2018-01-18 07:57 | disposition home or self-care (01) ==
LOC: M ED 06:03
DX: S39.012A Strain of muscle, fascia and tendon of lower back, initial encounter (principal); S30.0XXA Contusion of lower back and pelvis, initial encounter; W22.8XXA Striking against or struck by other objects, initial encounter; Y92.139 Unspecified place military base as the place of occurrence of the external cause; Y93.9 Activity, unspecified; Y99.1 Military activity; J45.909 Unspecified asthma, uncomplicated; F32.9 Major depressive disorder, single episode, unspecified; M54.5 Low back pain; Z79.899 Other long term (current) drug therapy
CPT/HCPCS: J1885

== ENCOUNTER 2018-01-30 02:26 | Emergency (ER) | payer OTHER ==
[2018-01-30] MEDS: KETOROLAC 60 MG/2 ML VIAL (J1885) IM (03:52)
== END 2018-01-30 04:02 | disposition home or self-care (01) ==
LOC: M ED 02:26
DX: S39.002A Unspecified injury of muscle, fascia and tendon of lower back, initial encounter (principal); W18.30XA Fall on same level, unspecified, initial encounter; Y92.89 Other specified places as the place of occurrence of the external cause; F33.9 Major depressive disorder, recurrent, unspecified; Z79.899 Other long term (current) drug therapy
CPT/HCPCS: J1885

== ENCOUNTER 2019-02-09 20:45 | Emergency (ER) | payer OTHER ==
[~2019-02-09] VITALS: Ht 154.9 cm; Wt 66.8 kg
[~2019-02-09 20:45] MED LIST: ACET1TAB55 PO; CELE1CAP4 PO; DEXA4TA; HYDR-3713; HYDR-3715 PO; IBUP80TA PO; KETO10TAB PO; METH1TAB40; MINO100C80; NITR100C2; RIGHTAB2 PO; ROBA500T PO; SERT-141 PO; VALI10TA PO; ZOFR4TAB14 PO; ZOLO25TA PO
[2019-02-09 22:27] LABS: BILIRUBIN, URINE MANUAL NEGATIVE (NEGATIVE); GLUCOSE, URINE (UA) MANUAL NEGATIVE (NEGATIVE); KETONE, URINE MANUAL NEGATIVE (NEGATIVE); UROBILINOGEN, URINE MANUAL NORMAL (NORMAL)
[2019-02-09 22:37] LABS: BACTERIA, URINE SMALL AMOUNT; HYALINE CAST, URINE NONE SEEN /lpf (0-1); RBC, URINE NONE SEEN /hpf (0-3); SQUAMOUS EPITHELIAL CELL URINE SMALL AMOUNT /hpf (SMALL AMT)
[2019-02-09] MEDS ORDERED: KETOROLAC 30 MG/ML VIAL (J1885) IM ONE (23:00)
[2019-02-09] MEDS ORDERED: FLAG500T PO ×2 (23:37→23:59)
[2019-02-09] MEDS ORDERED: IBUP80TA PO ×2 (23:39→23:59)
[2019-02-09 23:43] VITALS: BP 118/70
[2019-02-09] MEDS ORDERED: LIDOCAINE 1% SDV 5 ML VIAL DILUENT ONE (23:45)
[2019-02-09] MEDS ORDERED: ONDANSETRON 4 MG ORAL DISINTEGRATING TAB (Q0162 PER 1MG) PO ONE (23:45)
[2019-02-09] MEDS ORDERED: cefTRIAXone SOD 250 MG VIAL (J0696) IM ONE (23:45)
[2019-02-09] MEDS ORDERED: AZITHROMYCIN 250 MG TAB PO ONE (23:45)
[2019-02-09] MEDS ORDERED: metroNIDAZOLE (FLAGYL) 500 MG TAB PO ONE (23:45)
[2019-02-10 01:13] LABS: CHLAMYDIA DNA AMPLIFICATION NEGATIVE (NEGATIVE); GC DNA AMPLIFICATION NEGATIVE (NEGATIVE)
== END 2019-02-10 00:01 | disposition home or self-care (01) ==
LOC: M ED 20:45
DX: N72 Inflammatory disease of cervix uteri (principal); J45.909 Unspecified asthma, uncomplicated; F33.9 Major depressive disorder, recurrent, unspecified; F41.9 Anxiety disorder, unspecified; F17.290 Nicotine dependence, other tobacco product, uncomplicated
CPT/HCPCS: 81000; 81025; 87086; 87210; 87661; 96372; 99284; J0696; J1885; Q0162